=== PATIENT | male | born 1945 | race Caucasian/White ===

== ENCOUNTER → 2016-05-10 | Outpatient (CLI) | payer OTHER ==
[~2016-05-10] MED LIST: ALEVE 220MG220 MG PO; ASPI325T6 PO; ASPIRIN 81M81 MG/TA2 PO; ASPIRIN E.C. 8181 MG PO; BRILINTA90 MG PO; CELEXA10 MG PO; COZAAR 50MG50 MG/TAB PO; DESYREL 50MG50 MG PO; KLONOPIN 1MG1 MG PO; LEVOTHYROXINE0.1 MG PO; LOPRESSOR 550 MG/TAB PO; LORTAB 5/500 501 TAB PO; NITROSTAT0.4 MG/TAB SL; PRAVACHOL 40MG40 MG PO; PRAVACHOL80 MG PO; SYNTHROID0.125 MG/T PO; TRAZADONE HYDR100 MG PO; XANAX0.25 MG PO; ZOLOFT50 MG PO
== END ==
LOC: BHSO 08:48
DX: F33.42 Major depressive disorder, recurrent, in full remission (principal)

== ENCOUNTER → 2016-08-06 | Outpatient (CLI) | payer OTHER | LOC: BHSO 08:43 | DX: F33.42 Major depressive disorder, recurrent, in full remission (principal) ==

== ENCOUNTER → 2016-09-27 | Outpatient (CLI) | payer OTHER | LOC: BHSO 08:11 | DX: F41.1 Generalized anxiety disorder (principal) ==

== ENCOUNTER → 2016-11-01 | Outpatient (CLI) | payer OTHER | LOC: BHSO 07:55 | DX: F41.1 Generalized anxiety disorder (principal) ==

== ENCOUNTER → 2016-12-17 | Outpatient (CLI) | payer OTHER | LOC: BHSO 09:01 | DX: F33.42 Major depressive disorder, recurrent, in full remission (principal) ==

== ENCOUNTER → 2017-02-04 | Outpatient (CLI) | payer OTHER | LOC: BHSO 08:55 | DX: F33.41 Major depressive disorder, recurrent, in partial remission (principal) ==

== ENCOUNTER → 2017-03-04 | Outpatient (CLI) | payer OTHER | LOC: BHSO 08:50 | DX: F41.1 Generalized anxiety disorder (principal) ==

== ENCOUNTER 2017-07-12 02:03 | Emergency (ER) | payer OTHER ==
[~2017-07-12] VITALS: Ht 182.9 cm; Wt 104.5 kg
[2017-07-12 02:06] VITALS: BP 136/64
[2017-07-12 04:09] VITALS: PULSE 83
== END 2017-07-12 04:10 | disposition home or self-care (01) ==
LOC: COL.ER 02:03
DX: J95.03 Malfunction of tracheostomy stoma (principal); C33 Malignant neoplasm of trachea; C76.0 Malignant neoplasm of head, face and neck; C79.89 Secondary malignant neoplasm of other specified sites; Z79.82 Long term (current) use of aspirin; I10 Essential (primary) hypertension; E78.00 Pure hypercholesterolemia, unspecified; E03.9 Hypothyroidism, unspecified; F32.9 Major depressive disorder, single episode, unspecified; F41.9 Anxiety disorder, unspecified; Z87.891 Personal history of nicotine dependence; Z98.890 Other specified postprocedural states

== ENCOUNTER → 2017-10-20 | Outpatient (CLI) | payer OTHER | LOC: BHSO 14:00 | DX: F41.1 Generalized anxiety disorder (principal) ==

== ENCOUNTER → 2018-01-09 | Outpatient (CLI) | payer OTHER | LOC: BHSO 10:28 | DX: F41.1 Generalized anxiety disorder (principal) | CPT/HCPCS: G0463 ==

== ENCOUNTER → 2018-07-02 | Outpatient (CLI) | payer MEDICARE | LOC: BHSO 11:06 | DX: F33.42 Major depressive disorder, recurrent, in full remission (principal) | CPT/HCPCS: G0463 ==

== ENCOUNTER → 2019-01-01 | Outpatient (CLI) | payer MEDICARE | LOC: BHSO 10:45 | DX: F33.42 Major depressive disorder, recurrent, in full remission (principal) | CPT/HCPCS: G0463 ==

== ENCOUNTER → 2019-04-06 | Outpatient (CLI) | payer MEDICARE | LOC: BHSO 09:08 | DX: F41.1 Generalized anxiety disorder (principal) | CPT/HCPCS: G0463 ==

== ENCOUNTER → 2019-10-06 | Outpatient (CLI) | payer MEDICARE | LOC: BHSO 10:37 | DX: F41.1 Generalized anxiety disorder (principal) | CPT/HCPCS: G0463 ==

== ENCOUNTER 2023-03-27 19:02 | Emergency (ER) | payer MEDICARE ==
[~2023-03-27] VITALS: Ht 182.9 cm; Wt 86.4 kg
[2023-03-27 19:21] VITALS: BP 149/79; TEMP 98.2
[2023-03-27 19:45] LABS: COLLECTION METHOD CLEAN CATCH
[2023-03-27 19:53] VITALS: PULSE 74
[2023-03-27 19:58] LABS: PH 5.5 (5.0-8.5); SQUAMOUS EPITHELIAL 0-2 /hpf (0-10); URINE APPEARANCE Clear (CLEAR/HAZY); URINE BLOOD TRACE-INTACT (NEGATIVE); URINE COLOR Yellow (YELLOW); URINE GLUCOSE Negative (NEGATIVE); URINE KETONE Negative (NEGATIVE); URINE NITRATE Negative (NEGATIVE); URINE PROTEIN(semi-quant) Negative (NEGATIVE); URINE RBC 0-2 /hpf (0-2); URINE UROBILINOGEN 0.2 E.U/dL (0.2-1.0)
== END 2023-03-27 19:53 | disposition home or self-care (01) ==
LOC: COL.ER 19:02
PROVIDERS: Family Medicine
DX: K40.90 Unilateral inguinal hernia, without obstruction or gangrene, not specified as recurrent (principal)

== ENCOUNTER 2023-05-12 10:11 | Day surgery (SDC) | payer MEDICARE ==
[~2023-05-12] VITALS: Ht 182.9 cm; Wt 86.9 kg
[2023-05-12] VITALS (7 sets, daily range): BP systolic 101–150; BP diastolic 48–70; PULSE 58–78; TEMP 97.3–97.7
[~2023-05-12 10:11] MED LIST changes: +LR 1,000 ML IV SCH
[2023-05-12] MEDS ORDERED: FLOMAX 0.40.4 MG/CAP PO (10:55)
[2023-05-12] MEDS ORDERED: PRILOTC (10:57)
[2023-05-12] MEDS ORDERED: TOPROL XL 25MG25 MG PO (10:57)
[2023-05-12] MEDS ORDERED: BUSPAR5 MG PO (10:58)
[2023-05-12] MEDS ORDERED: Rocuronium 50 MG/5 ML Multi-Dose VIAL ONE (11:19)
[2023-05-12] MEDS ORDERED: Ondansetron 4 MG/2 ML VIAL ONE (11:19)
[2023-05-12] MEDS ORDERED: fentaNYL 50 MCG/ML 5 ML VIAL ONE (11:19)
[2023-05-12] MEDS ORDERED: Lidocaine PF 2% (20 MG/ML) 5 ML VIAL ONE (11:19)
--- NOTE | 2023-05-12 11:50 | NUR ---
1036 Pt ambulatory to bay 6 with steady gait, breathing even and unlabored. Pt is alert and oriented, accompanied by his . Consents reviewed and signed by pt. IV established. LR infusing via gravity. Call light in reach. Warm blanket provided.
[2023-05-12] MEDS ORDERED: NORCO 325 MG-51 TAB PO (12:38)
[2023-05-12] MEDS ORDERED: Ondansetron 4 MG/2 ML VIAL IV PRN (12:45)
[2023-05-12] MEDS ORDERED: Ketorolac 30 MG/ML VIAL ONE (13:37)
--- NOTE | 2023-05-12 14:20 | NUR ---
PATIENT RETURNED TO ROOM 6 VIA CART, ALERT AND ORIENTED X3. STATES PAIN IS 2/10 TOLERABLE TO ABDOMEN. DENIES NAUSEA AND SHORTNESS OF BREATH. BREATHING REGULAR AND UNLABORED ON ROOM AIR. SKIN WARM AND DRY. ABDOMEN ROUNDED AND SOFT. 3 ABDOMINAL BANDAIDS PRESENT TO ABDOMEN. BANDAIDS CLEAN, DRY AND INTACT. SCROTAL SUPPORT IN PLACE. NURSE HANDOFF COMPLETED IN ROOM. SEE CHART FOR VITAL SIGNS. PATIENT HAD PUDDING AND WATER. BOTH FOOD AND DRINK TOLERATED WELL. CALL LIGHT IN REACH. SPOUSE PRESENT IN ROOM.
--- NOTE | 2023-05-12 14:38 | NUR ---
PATIENT REPORTS INTOLERABLE 4/10 PAIN TO ABDOMEN. REQUESTS MEDICATION INTERVENTION. DISCUSSED PAIN MANAGEMENT PLAN. SEE EMAR FOR MEDICATION GIVEN. CALL LIGHT IN REACH.
--- NOTE | 2023-05-12 15:25 | NUR ---
1509: DISCHARGE TEACHING COMPLETED WITH PRINTED EDUCATION AND INSTRUCTIONS SENT HOME WITH PATIENT. PATIENT AND SPOUSE VERBALIZED UNDERSTANDING. PATIENT AMBULATED TO RESTROOM WITH STEADY GAIT AND VOIDED WITHOUT DIFFICULTY. 1520: PATIENT RATES PAIN TOLERABLE, DENIES ADDITIONAL INTERVENTIONS. TOLERATING FOOD AND DRINK. ABDOMINAL BANDAIDS CLEAN, DRY AND INTACT. SCROTAL SUPPORT IN PLACE. IV REMOVED. GAUZE AND COBAN PLACED OVER SITE. 1525: PATIENT CHANGED INTO PERSONAL CLOTHING AND DISCHARGED HOME WITH TRANSPORT.
== END 2023-05-12 15:25 | disposition home or self-care (01) ==
LOC: SDCO 10:11
DX: K40.90 Unilateral inguinal hernia, without obstruction or gangrene, not specified as recurrent (principal); K21.9 Gastro-esophageal reflux disease without esophagitis; Z87.891 Personal history of nicotine dependence
CPT/HCPCS: C1781; J0690; J1885; J2405; J2704; J3010; J7120